=== PATIENT | male | born 1995 | race Caucasian/White ===

== ENCOUNTER 2019-10-23 23:25 | Emergency (ER) | payer OTHER, SELFPAY ==
[~2019-10-23] VITALS: Ht 182.9 cm; Wt 123.4 kg
[2019-10-24] MEDS ORDERED: SODIUM CHLORIDE FLUSH 10ML SYR IVF ONE
[2019-10-24] MEDS ORDERED: SODIUM CHLORIDE 0.9% 1,000ML IVBOLUS ONE
[2019-10-24] MEDS ORDERED: LEVO88TA4 PO (00:03)
--- NOTE | 2019-10-24 00:14 | NUR ---
This is a 24 yo male coming in with c/o sore throat, dry cough, nausea, ear pain, sob and back pain and has had exposure to covid from work. Pt works at [employer]. Pt states symptoms started about 4-5 days ago and worsening over time. Pt speaking in full sentences, respirations even but mildly labored and tachypnic at 24 breaths a minute. Pt appears diaphoretic and pale. All monitoring in place, sinus tachy on monitor, 98% on RA. PIV placed labs and first set of cultures drawn. IVF started. ER PA to bedside for swabs
[2019-10-24] MEDS ORDERED: ACETAMINOPHEN 500 MG TABLET PO ONE (00:30)
[2019-10-24] MEDS ORDERED: ACETAMINOPHEN 500 MG TABLET ONE (00:32)
--- NOTE | 2019-10-24 00:35 | NUR ---
Pt medicated per emar, tolerated well
[2019-10-24 01:02] LABS: BASOPHILS # (AUTO) 0.06 x10^3/uL (0-0.1); BASOPHILS % (AUTO) 1 % (0-1); EOSINOPHILS # (AUTO) 0.09 x10^3/uL (0-0.4); EOSINOPHILS % (AUTO) 1 % (1-7); LYMPHOCYTES # (AUTO) 2.33 x10^3/uL (1-3.4); LYMPHOCYTES % (AUTO) 21 % (22-44); MD NO; MEAN CORPUSCULAR HEMOGLOBIN 31.7 pg (27.5-34.5); MEAN CORPUSCULAR VOLUME 93.3 fL (81-97); MONOCYTES # (AUTO) 0.88 x10^3/uL (0.2-0.8); MONOCYTES % (AUTO) 8 % (2-9); NEUTROPHILS # (AUTO) 7.64 x10^3/uL (1.8-6.8); NEUTROPHILS % (AUTO) 70 % (42-75); PLATELET COUNT 216 x10^3/uL (130-400); RED CELL DISTRIBUTION WIDTH 12.7 % (9.4-14.8)
[2019-10-24 01:03] LABS: RAPID INFLUENZA A Negative (Negative); RAPID INFLUENZA B Negative (Negative)
[2019-10-24 01:15] LABS: ALBUMIN 4.1 g/dL (3.4-5.0); ANION GAP 8 mmol/L (5-15); CALCIUM 9.3 mg/dL (8.5-10.1); CHLORIDE 103 mmol/L (98-107)
[2019-10-24 01:19] LABS: ALANINE AMINOTRANSFERASE 92 U/L (12-78); ALKALINE PHOSPHATASE 86 U/L (45-117); BILIRUBIN,TOTAL 0.5 mg/dL (0.2-1.0); CREATININE 1.22 mg/dL (0.7-1.3); TOTAL PROTEIN 8.8 g/dL (6.4-8.2)
--- NOTE | 2019-10-24 01:21 | NUR ---
Lab called in regards to unread labs, medical laboratory manager stated it should be in process
[2019-10-24 02:00] VITALS: BP 131/61
[2019-10-24] MEDS ORDERED: AZITHROMYCIN 250 MG TABLET ONE (02:21)
[2019-10-24] MEDS ORDERED: AZITHROMYCIN 500 MG TABLET PO ONE (02:30)
--- NOTE | 2019-10-24 02:30 | NUR ---
Pt medicated per emar, tolerated well. PIV removed, ER PA at bedside to discuss discharge
--- NOTE | 2019-10-24 02:43 | NUR ---
Patient given discharge instructions and they have confirmed that they understand the instructions. Patient ambulatory with steady gait.
== END 2019-10-24 02:46 | disposition home or self-care (01) ==
LOC: ED 10-24 00:33
DX: R50.9 Fever, unspecified (principal); Z20.828 Contact with and (suspected) exposure to other viral communicable diseases; H66.93 Otitis media, unspecified, bilateral; J06.9 Acute upper respiratory infection, unspecified; R00.0 Tachycardia, unspecified; Z85.850 Personal history of malignant neoplasm of thyroid
CPT/HCPCS: 36415; 71275; 80053; 83605; 83615; 84145; 85025; 87040; 87400; 93005; 96360; 96361; 99285; J7030

== ENCOUNTER 2019-10-27 23:45 | Emergency (ER) | payer SELFPAY ==
[~2019-10-27] VITALS: Ht 182.9 cm; Wt 120.0 kg
[~2019-10-27 23:45] MED LIST: LEVO88TA4 PO
[2019-10-28] MEDS ORDERED: CEFTRIAXONE PMX 1GM/50ML 50 ML ONE (00:47)
[2019-10-28] MEDS ORDERED: SODIUM CHLORIDE FLUSH 10ML SYR IVF ONE (01:00)
[2019-10-28] MEDS ORDERED: CEFTRIAXONE PMX 1GM/50ML 50 ML IVPB ONE (01:00)
--- NOTE | 2019-10-28 01:09 | NUR ---
PT SEEN HERE ~4 DAYS AGO, TX C ABX. STATES EAR INFECTION NOT GETTING BETTER,DIFFICULTY EATING D/T JAW PAIN. AFEBRILE. PT WAS ALSO TREATED FOR URI. COUGH CONTINUES. PT BACK FROM CT. LABS DRAWN, STARTED ON ABX. WILL CTM. CALL LIGHT INREACH.
[2019-10-28 01:26] LABS: BASOPHILS # (AUTO) 0.05 x10^3/uL (0-0.1); BASOPHILS % (AUTO) 1 % (0-1); EOSINOPHILS # (AUTO) 0.26 x10^3/uL (0-0.4); EOSINOPHILS % (AUTO) 3 % (1-7); LYMPHOCYTES # (AUTO) 2.17 x10^3/uL (1-3.4); LYMPHOCYTES % (AUTO) 25 % (22-44); MD NO; MEAN CORPUSCULAR HEMOGLOBIN 31.9 pg (27.5-34.5); MEAN CORPUSCULAR HGB CONC 34.7 g/dL (33.2-36.2); MEAN CORPUSCULAR VOLUME 92.1 fL (81-97); MEAN PLATELET VOLUME 9.2 fL (7.4-10.4); MONOCYTES # (AUTO) 0.65 x10^3/uL (0.2-0.8); MONOCYTES % (AUTO) 8 % (2-9); NEUTROPHILS # (AUTO) 5.46 x10^3/uL (1.8-6.8); NEUTROPHILS % (AUTO) 64 % (42-75); PLATELET COUNT 282 x10^3/uL (130-400); RED BLOOD COUNT 5.01 x10^6/uL (4.38-5.82); RED CELL DISTRIBUTION WIDTH 12.2 % (9.4-14.8)
[2019-10-28 01:34] LABS: ALBUMIN 3.8 g/dL (3.4-5.0); ANION GAP 7 mmol/L (5-15); CALCIUM 9.5 mg/dL (8.5-10.1); CHLORIDE 106 mmol/L (98-107); CREATININE 1.15 mg/dL (0.7-1.3)
[2019-10-28 01:57] VITALS: BP 125/82
--- NOTE | 2019-10-28 01:58 | NUR ---
TASK RN: PT VSS AND UPDATED IN EMR. PT IV D/C WITH TIP INTACT. DR IVERSON AT TO DISCUSS PT HOMECARE INSTRUCTIONS. PT VERBALIZES UNDERSTANDING. CALL LIGHT IS WITHIN REACH AT THIS TIME. AWAITING D/C PAPERWORK AT THIS TIME FOR PT D/C HOME.
--- NOTE | 2019-10-28 02:07 | NUR ---
TASK RN: PT D/C WITH D/C PAPERWORK AND SCRIPTS. PT VERBALIZES UNDERSTANDING OF HOME CARE AND F/U INSTRUCTIONS. PT AMBULATES TO AMBULANCE BAY WITH STEADY GAIT FOR D/C HOME. 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 PT DENIES ANY OTHER NEEDS PERTAINING TO THIS VISIT.
== END 2019-10-28 02:11 | disposition home or self-care (01) ==
LOC: MERGE 23:45 → ED 10-28 00:44
DX: H66.011 Acute suppurative otitis media with spontaneous rupture of ear drum, right ear (principal); R51 Headache
CPT/HCPCS: 36415; 70450; 80048; 82040; 85025; 96365; 99285; J0696

== ENCOUNTER 2020-02-22 08:00 | Emergency (ER) | payer SELFPAY ==
[~2020-02-22] VITALS: Ht 182.9 cm; Wt 124.4 kg
[2020-02-22] MEDS ORDERED: SODIUM CHLORIDE FLUSH 10ML SYR IVF ONE (08:30)
[2020-02-22] MEDS ORDERED: MORPHINE SULFATE 4 MG/ML, 1ML IVPush PRN (08:30)
[2020-02-22] MEDS ORDERED: ONDANSETRON 2MG/ML, 2ML IVPush ONE (08:30)
--- NOTE | 2020-02-22 08:35 | NUR ---
24 Y/O MALE PRESENTS TO ED WITH C/O RIGHT EAR PAIN. PER PT "ABOUT 4 MONTHS AGO I HAD MASTOIDITIS IN BOTH EARS. NOW IT'S JUST THE RIGHT ONE. THERE IS BLOOD AND PUS COMING OUT." NADN. NO C/O TRAUMA, SYNCOPE, CP,SOB, N/V./D.
[2020-02-22 08:58] LABS: BASOPHILS # (AUTO) 0.07 x10^3/uL (0-0.1); BASOPHILS % (AUTO) 1 % (0-1); EOSINOPHILS # (AUTO) 0.13 x10^3/uL (0-0.4); EOSINOPHILS % (AUTO) 2 % (1-7); LYMPHOCYTES # (AUTO) 2.47 x10^3/uL (1-3.4); LYMPHOCYTES % (AUTO) 34 % (22-44); MD NO; MEAN CORPUSCULAR HEMOGLOBIN 31.6 pg (27.5-34.5); MEAN CORPUSCULAR HGB CONC 33.9 g/dL (33.2-36.2); MEAN CORPUSCULAR VOLUME 93.2 fL (81-97); MEAN PLATELET VOLUME 10.7 fL (7.4-10.4); MONOCYTES # (AUTO) 0.52 x10^3/uL (0.2-0.8); MONOCYTES % (AUTO) 7 % (2-9); NEUTROPHILS # (AUTO) 4.17 x10^3/uL (1.8-6.8); NEUTROPHILS % (AUTO) 57 % (42-75); PLATELET COUNT 208 x10^3/uL (130-400); RED BLOOD COUNT 5.46 x10^6/uL (4.38-5.82); RED CELL DISTRIBUTION WIDTH 12.7 % (9.4-14.8)
[2020-02-22] MEDS ORDERED: ONDANSETRON 2MG/ML, 2ML ONE (09:06)
[2020-02-22] MEDS ORDERED: MORPHINE SULFATE 4 MG/ML, 1ML ONE (09:06)
[2020-02-22 09:08] LABS: ALANINE AMINOTRANSFERASE 136 U/L (12-78); ALBUMIN 4.2 g/dL (3.4-5.0); ANION GAP 7 mmol/L (5-15); CALCIUM 9.2 mg/dL (8.5-10.1); CHLORIDE 107 mmol/L (98-107); CREATININE 1.13 mg/dL (0.7-1.3)
[2020-02-22 09:11] LABS: ALKALINE PHOSPHATASE 78 U/L (45-117); BILIRUBIN,TOTAL 0.6 mg/dL (0.2-1.0); TOTAL PROTEIN 8.2 g/dL (6.4-8.2)
--- NOTE | 2020-02-22 09:17 | NUR ---
PIV ESTABLISHED. PT TOLERATED WITH NO COMPLICATIONS. MEDICATIONS ADMINISTERED PER ORDER. PT PREFERS ONE SIDE RAILING DOWN. 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 PT VERBALIZED UNDERSTANDING. NADN. NO OTHER NEEDS REQUESTED AT THIS TIME.
--- NOTE | 2020-02-22 09:31 | NUR ---
PT STATES "THE PAIN IS BETTER. MY JAW DOESN'T HURT, WHICH IS A FIRST. NOW I CAN FEEL A LITTLE PULSE IN MY EAR. BUT I'M NOT NAUSEOUS WHEN I TURN MY HEAD." NADN. PT STILL PREFERS RAILING DOWN. REEDUCATED REGARDING ALL RISKS. PT VERBALIZED UNDERSTANDING.
[2020-02-22] MEDS ORDERED: CEFTRIAXONE PMX 1GM/50ML 50 ML IV ONE (10:00)
[2020-02-22] MEDS ORDERED: CEFTRIAXONE PMX 1GM/50ML 50 ML ONE (10:13)
--- NOTE | 2020-02-22 10:19 | NUR ---
MEDICATION ADMINISTERED PER ORDER. PT STATES "I FEEL BETTER." NADN. NO OTHER NEEDS REQUESTED AT THIS TIME. VSS
--- NOTE | 2020-02-22 10:20 | NUR ---
PT STATES "I HAVE HIGH BLOOD PRESSURE AND CHOLESTEROL PROBLEMS. BUT I DONT TAKE MEDS BECAUSE I DON'T HAVE INS."
--- NOTE | 2020-02-22 10:46 | NUR ---
ABX STILL INFUXING.
--- NOTE | 2020-02-22 11:10 | NUR ---
Patient/Caregiver given discharge instructions and they have confirmed that they understand the instructions. Patient ambulatory with steady gait. PT LEFT WITH ALL PERSONAL BELONGINGS. PIV D/C WITH TIP INTACT. PRESSURE DRESSING APPLIED.
[2020-02-22 11:11] VITALS: BP 119/86
== END 2020-02-22 11:12 | disposition home or self-care (01) ==
LOC: ED 08:54
DX: H60.311 Diffuse otitis externa, right ear (principal); H70.001 Acute mastoiditis without complications, right ear; R51 Headache; H91.91 Unspecified hearing loss, right ear; Z88.0 Allergy status to penicillin; Z85.850 Personal history of malignant neoplasm of thyroid
CPT/HCPCS: 36415; 70480; 80053; 85025; 87040; 96365; 96375; 99284; J0696; J2270; J2405

== ENCOUNTER 2020-07-11 09:51 | Emergency (ER) | payer SELFPAY ==
[~2020-07-11] VITALS: Ht 182.9 cm; Wt 119.7 kg
--- NOTE | 2020-07-11 11:36 | NUR ---
BETA TESTER: PT TO ROOM FROM LOBBY, GAIT SLOW AND STEADY
[2020-07-11 12:46] LABS: ANION GAP 5 mmol/L (5-15); CALCIUM 9.8 mg/dL (8.5-10.1); CHLORIDE 100 mmol/L (98-107)
[2020-07-11 12:50] LABS: BASOPHILS % (AUTO) 0 % (0-1); EOSINOPHILS % (AUTO) 1 % (1-7); LYMPHOCYTES % (AUTO) 27 % (22-44); MEAN CORPUSCULAR HEMOGLOBIN 32.4 pg (27.5-34.5); MEAN CORPUSCULAR HGB CONC 35.7 g/dL (33.2-36.2); MEAN PLATELET VOLUME 8.8 fL (7.4-10.4); MONOCYTES % (AUTO) 11 % (2-9); NEUTROPHILS % (AUTO) 60 % (42-75); PLATELET COUNT 199 x10^3/uL (130-400); RED BLOOD COUNT 5.22 x10^6/uL (4.38-5.82); RED CELL DISTRIBUTION WIDTH 12.6 % (9.4-14.8)
[2020-07-11 12:51] LABS: ALANINE AMINOTRANSFERASE 76 U/L (12-78); ALKALINE PHOSPHATASE 71 U/L (45-117); BILIRUBIN,TOTAL 1.2 mg/dL (0.2-1.0); CREATININE 1.28 mg/dL (0.7-1.3); MD NO; TOTAL PROTEIN 9.2 g/dL (6.4-8.2)
[2020-07-11] MEDS ORDERED: SODIUM CHLORIDE 0.9% 1,000 ML IV SCH (13:00)
[2020-07-11] MEDS ORDERED: ONDANSETRON 2MG/ML, 2ML IVPush ONE (13:00)
[2020-07-11] MEDS ORDERED: ONDANSETRON 2MG/ML, 2ML ONE (13:04)
--- NOTE | 2020-07-11 13:21 | NUR ---
ASSUMED CARE FROM DENNISE BAEZ. PT RESTING IN [facility], MONITORING IN PLACE, AMBER AT THIS TIME. PER PT NO NEEDS AT THIS TIME, WILL CONTINUE TO MONITOR.
[2020-07-11 15:06] VITALS: BP 117/89
== END 2020-07-11 15:08 | disposition home or self-care (01) ==
LOC: ED 15:00
DX: J18.9 Pneumonia, unspecified organism (principal); Z20.828 Contact with and (suspected) exposure to other viral communicable diseases; B34.9 Viral infection, unspecified; R07.89 Other chest pain; R50.9 Fever, unspecified; R05 Cough; R00.0 Tachycardia, unspecified; M79.10 Myalgia, unspecified site; R53.83 Other fatigue
CPT/HCPCS: 71045; 80053; 85025; 87040; 87635; 93005; 96361; 96374; 99285; J2405; J7030

== ENCOUNTER 2021-03-25 03:32 | Emergency (ER) | payer OTHER ==
[~2021-03-25] VITALS: Ht 182.9 cm; Wt 120.0 kg
[2021-03-25] MEDS ORDERED: SODIUM CHLORIDE 0.9% 1,000ML IVBOLUS ONE (04:30)
[2021-03-25] MEDS ORDERED: METF500T17 PO (04:39)
[2021-03-25] MEDS ORDERED: TRAM50TA2 PO (04:39)
[2021-03-25] MEDS ORDERED: AMIT50TA PO (04:39)
[2021-03-25] MEDS ORDERED: SEMA1PEN3 INJ (04:39)
[2021-03-25] MEDS ORDERED: CYCL5TAB PO (04:40)
[2021-03-25] MEDS ORDERED: METH-639 PO (04:40)
[2021-03-25 05:01] LABS: BASOPHILS % (AUTO) 1 % (0-1); EOSINOPHILS % (AUTO) 1 % (1-7); LYMPHOCYTES % (AUTO) 14 % (22-44); MEAN CORPUSCULAR HEMOGLOBIN 31.7 pg (27.5-34.5); MEAN PLATELET VOLUME 9.5 fL (7.4-10.4); MONOCYTES % (AUTO) 8 % (2-9); NEUTROPHILS % (AUTO) 77 % (42-75); PLATELET COUNT 163 x10^3/uL (130-400); RED BLOOD COUNT 5.66 x10^6/uL (4.38-5.82); RED CELL DISTRIBUTION WIDTH 12.5 % (9.4-14.8)
[2021-03-25 05:11] LABS: ALANINE AMINOTRANSFERASE 112 U/L (12-78); ALBUMIN 3.9 g/dL (3.4-5.0); ANION GAP 8 mmol/L (5-15); CALCIUM 9.1 mg/dL (8.5-10.1); CHLORIDE 101 mmol/L (98-107); CREATININE 1.17 mg/dL (0.7-1.3)
[2021-03-25 05:16] LABS: ALKALINE PHOSPHATASE 100 U/L (45-117); BILIRUBIN,TOTAL 1.4 mg/dL (0.2-1.0); TOTAL PROTEIN 8.5 g/dL (6.4-8.2); TROPONIN I < 0.015 ng/mL (0.000-0.045)
--- NOTE | 2021-03-25 05:17 | NUR ---
pt c/o of cp, sob, nausea/vomiting, cold sweats since 2200 last night. pt received first covid vaccine 2 days ago on wednesday. Pfiser attached to card/sp02/bp monitors. vss with elevated hr bed in low, rails engaged, call light on lap.
--- NOTE | 2021-03-25 05:18 | NUR ---
Patient is resting comfortably in bed. Bed in lowest, rails engaged, call light on lap. Vital Signs within normal limits. WCTM.
[2021-03-25] MEDS ORDERED: ONDANSETRON 2MG/ML, 2ML IVPush ONE (05:30)
[2021-03-25] MEDS ORDERED: KETOROLAC 30 MG/1 ML IVPush ONE (05:30)
[2021-03-25] MEDS ORDERED: KETOROLAC 30 MG/1 ML ONE (05:31)
[2021-03-25] MEDS ORDERED: ONDANSETRON 2MG/ML, 2ML ONE (05:31)
[2021-03-25 06:44] VITALS: BP 118/65
--- NOTE | 2021-03-25 06:56 | NUR ---
Patient/Caregiver given discharge instructions and they have confirmed that they understand the instructions. Patient ambulatory with steady gait. NAD, all questions answered appropriately, denies additional needs at this time. No personal belongings left in room after discharge.
== END 2021-03-25 06:57 | disposition home or self-care (01) ==
LOC: ED 06:50
DX: R07.89 Other chest pain (principal); T50.B95A Adverse effect of other viral vaccines, initial encounter; Y92.89 Other specified places as the place of occurrence of the external cause
CPT/HCPCS: 36415; 71045; 80053; 84484; 85025; 85379; 93005; 96361; 96374; 96375; 99285; J1885; J2405; J7030